=== PATIENT | male | born 2000 | race Caucasian/White ===

== ENCOUNTER 2022-06-14 14:46 | Emergency (ER) | payer OTHER, SELFPAY ==
--- NOTE | ~2022-06-14 | XR_ITS ---
EXAMINATION: XR ankle LT min 3V DATE: 06/14/2022 15:06 INDICATION: Lateral left ankle pain post twisting injury. TECHNIQUE: Anteroposterior, oblique, mortise, and lateral views of the left ankle were obtained. COMPARISON: None. FINDINGS: Alignment is normal. No fracture. Joint spaces are well maintained. Soft tissue swelling about the l ateral malleolus and lateral hindfoot. There is a left ankle joint effusion with increased density an terior to the tibiotalar joint line. IMPRESSION: 1. Left ankle joint effusion and lateral sided soft tissue swelling. No osseous abnormality. Reviewed, dictated and finalized at location A. [employer]
[2022-06-14 14:57] VITALS: BP 128/89; PULSE 91; RESP 16; TEMP 37.2; O2SAT 100
--- NOTE | 2022-06-14 15:02 | ED.LOWEXIN ---
HPI - Extremity Injury (Lower) General Chief Complaint: Extremity Injury, Lower Stated Complaint: INJURED L ANKLE Time Seen by Provider: 06/14/22 15:10 Source: patient and RN notes reviewed Mode of arrival: ambulatory Limitations: no limitations History of Present Illness HPI Narrative: 21-year-old male presents with concern for left ankle injury. Reports while dancing yesterday he twisted his ankle. He reports he has been using crutches. Reports swelling to the lateral, pain with moving the ankle MD complaint: ankle injury Related Data Home Medications Medication Instructions Recorded Confirmed No Home Medications 06/14/22 06/14/22 Review of Systems Review of Systems: CONSTITUTIONAL: Denies malaise, chills, sweats, or fever. SKIN: Denies rash or itching, open skin, laceration, abrasion, redness, warmth MUSCULOSKELETAL: Reports left ankle pain and swelling NEUROLOGIC: Denies numbness, weakness All systems reviewed & are unremarkable except as noted in HPI and below PMFSH Comments At time of signature, agree with nursing past medical, surgical, social and family history. There is no relevant family history pertinent to the presenting complaint Exam Narrative: GENERAL: Well-appearing, well-nourished, and in no acute distress. HEAD: Normocephalic, atraumatic. EYES: PERRLA, conjunctivae clear NECK: Supple. CHEST: Speaks in full sentences. No respiratory distress. HEART: Regular rate and rhythm. Normal and equal peripheral pulses. EXTREMITIES: Left ankle, foot, digits have normal strength and sensation, limited range of motion. Lateral edema with mild ecchymosis. 5/5 strength with ankle in digit flexion and extension. Normal sensation with sensitivity to light touch and pain. No point tenderness. No open wounds, no skin tenting, no devitalized tissue or atrophy, no trophic changes, no obvious deformity, alignment normal, nearby joints and structures intact. Distal pulses palpable and equal bilaterally, skin warm, dry, pink. Capillary refill less than 3 seconds. SKIN: Warm, dry, no rash. NEURO: Alert and oriented x3. PSYCH: Normal mood and affect Course Course Emergency Course: Patient is aware of diagnosis, understands and agrees to treatment plan. Anticipatory guidance given. Patient agrees to follow-up as directed and is aware of reasons to seek care at the emergency department. Portions of this record may have been created with voice recognition software Level of Care: [facility] Visit Vital Signs Vital signs: Vital Signs Temperature 99 F 06/14/22 14:57 Pulse Rate 91 06/14/22 14:57 Respiratory Rate 16 06/14/22 14:57 Blood Pressure 128/89 06/14/22 14:57 Pulse Oximetry 100 06/14/22 14:57 Oxygen Delivery Room Air 06/14/22 14:57 Temperature 99 F 06/14/22 14:57 Pulse Rate 91 06/14/22 14:57 Respiratory Rate 16 06/14/22 14:57 Blood Pressure 128/89 06/14/22 14:57 Pulse Oximetry 100 06/14/22 14:57 Oxygen Delivery Room Air 06/14/22 14:57 Reviewed. MDM - Extremity Injury (Lower) MDM Narrative Medical decision making narrative: Patients injury and pain is consistent with musculoskeletal etiology. No signs of neurological or vascular compromise on exam. Compartments and tissues are soft without signs of compartment syndrome. Pain is felt appropriate for further evaluation on an outpatient basis. Critical Care Time Critical Care Time Critical Care Time: No Discharge Plan Discharge Clinical Impression: Effusion of ankle joint, left Patient Disposition: Home, Self-Care Condition: Stable Instructions: Swollen Ankle Joint (ED) Additional Instructions: Avoid activities that cause pain until the pain subsides. Ice to the area 20-30 minutes 4-6 times a day Elevate above heart Elastic wrap as directed for comfort for the next 5-7 days Crutches as directed if needed Tylenol for lesser pain Ibuprofen regularly for the next 2-3 days for the inflammation
== END 2022-06-14 15:27 | disposition home or self-care (01) ==
PROVIDERS: Emergency Provider Nurse Practitioner
DX: M25.472 Effusion, left ankle (principal)
CPT/HCPCS: 73610; 99213; G0463